=== PATIENT | female | born 1965 | race Caucasian/White ===

== ENCOUNTER → 2020-11-15 | Outpatient (CLI) | payer BC ==
[~2020-11-15] MED LIST: CIPRO500 MG PO; FLAGYL500 MG PO; LISINOPRIL10 MG PO; NORCO 7.5-3251 EACH PO; PHENERGAN 25 MG25 M1 PO; SYNTHROID150 MCG PO
[2020-11-15 08:59] LABS: HEMOGLOBIN 13.8 gm/dl (12.3-15.3); RED BLOOD COUNT 4.37 M/UL (4.00-5.10); WHITE BLOOD COUNT 6.9 K/UL (4.5-11.0)
[2020-11-15 09:20] LABS: BUN/CREATININE RATIO 22 (0-10)
== END ==
LOC: LAB 06:26
PROVIDERS: Internal Medicine
DX: E03.9 Hypothyroidism, unspecified (principal); I10 Essential (primary) hypertension
CPT/HCPCS: 36415; 80048; 80061; 80076; 84443; 85025

== ENCOUNTER → 2021-01-14 | Outpatient (CLI) | payer BC | LOC: LAB 06:35 | DX: E78.2 Mixed hyperlipidemia (principal) | CPT/HCPCS: 36415; 80061; 80076 ==

== ENCOUNTER → 2021-10-17 | Outpatient (CLI) | payer BC ==
[2021-10-17 08:41] LABS: HEMOGLOBIN 13.6 gm/dl (12.3-15.3); RED BLOOD COUNT 4.27 M/UL (4.00-5.10); WHITE BLOOD COUNT 7.2 K/UL (4.5-11.0)
[2021-10-17 09:11] LABS: BUN/CREATININE RATIO 20 (0-10)
== END ==
LOC: LAB 06:38
PROVIDERS: Internal Medicine
DX: E78.5 Hyperlipidemia, unspecified (principal)
CPT/HCPCS: 80048; 80061; 80076; 84443; 85025

== ENCOUNTER → 2022-04-23 | Outpatient (CLI) | payer BC ==
[2022-04-23 09:22] LABS: HEMOGLOBIN 13.5 gm/dl (12.3-15.3); RED BLOOD COUNT 4.26 M/UL (4.00-5.10); WHITE BLOOD COUNT 7.5 K/UL (4.5-11.0)
[2022-04-23 09:58] LABS: BUN/CREATININE RATIO 24 (0-10)
== END ==
LOC: LAB 06:24
PROVIDERS: Internal Medicine
DX: E78.5 Hyperlipidemia, unspecified (principal)
CPT/HCPCS: 80048; 80061; 80076; 84443; 85025

== ENCOUNTER → 2022-07-10 | Outpatient (CLI) | payer BC ==
[2022-07-12 14:11] LABS: LYME TOTAL ANTIBODY CIA Negative (Negative)
== END ==
LOC: LAB 06:56
PROVIDERS: Physician Assistant
DX: R21 Rash and other nonspecific skin eruption (principal); W57.XXXA Bitten or stung by nonvenomous insect and other nonvenomous arthropods, initial encounter
CPT/HCPCS: 86618; 86757